=== PATIENT | female | born 1985 | race Hispanic/Latino ===

== ENCOUNTER 2021-10-04 17:11 | Emergency (ER) | payer OTHER ==
--- OUTSIDE RECORDS SUMMARY | 2021-10-04 17:14 | XMS REPORT | Continuity of Care Document ---
:1985 Author Organization [facility] t Address [address] [place] [address] Care Team Providers Name Role Phone Smiley Batista Attending Clinician Unavailable LISANDRO_ALEXA_Lester_G Attending Clinician Unavailable Willam Batista Attending Clinician [phone] Elke Almaguer DO Attending Clinician Elke ALMAGUER Attending Clinician Unavailable Smiley Batista Admitting Clinician Unavailable LISANDRO_ALEXA_Lester_G Admitting Clinician Unavailable Payers Payer Name Policy Type Policy Number Effective Date Expiration Date Smiley moreno [employer] - CHOICE [id number] 2017 00:00:00 (POS II) Problems This patient has no known problems. Allergies, Adverse Reactions, Alerts Allergy Allergy Status Severity Reaction(s) Onset Inactive Treating Comm ents Source Name Type Date Date Clinician No Known DA Active U 2020-10 [facility] [address] [place] [address] NO KNOWN Drug Active [facility] ALLERGIE Class ity of S [facility] Social History Social Habit Start Date Stop Date Quantity Comments Source Exposure to Not sure [facility] SARS-CoV-2 (event) Medica l Branch Sex Assigned At [birth year] [facility] 00:00:00 00:00:00 Medical Branch Smoking Status Start Date Stop Date Source Unknown if ever smoked [facility] Medications This patient has no known medications. Vital Signs Vital Name Observation Time Observation Value Comments Source Systolic blood 2021-04-03 21:24:00 141 mm[Hg] Univer sity of pressure [facility] Diastolic blood 2021-04-03 21:24:00 83 mm[Hg] Unive rsity of pressure [facility] Heart rate 2021-04-03 21:24:00 69 /min [facility] Body temperature 2021-04-03 21:24:00 36.83 Jade [facility] Res[facility] rate 2021-04-03 21:24:00 20 /min [facility] Body weight 2021-04-03 21:24:00 87.544 kg [facility] Oxygen saturation in 2021-04-03 21:24:00 100 /min [facility] Arterial blood by [facility] Pulse oximetry Branch Procedures Procedure Date / Time Performed Performing Clinician Jessica vega [id number] 2021-09-18 00:00:00 [facility] NOTICE OF PRIVACY 2021-04-03 21:16:51 Doctor Unassigned, No [facility] Name Medical Branch CONSENT/REFUSAL FOR 2021-04-03 21:15:55 Doctor Unassigned, No [facility] DIAGNOSIS AND Name Medical Branch TREATMENT Encounters Start End Encounter Admission Attending Care Care Encounter Source Date/Time Date/Time Type Type Clinicians Facility Department ID 2021-09-16 Inpatient VIRAL AmbroseJOHANNA [id number] [facility] 11:30:00 Tuan [id number] [facility] 2021-09-29 2021-09-29 Outpatient GC_[facility]_ PRIV PRIV [id number] [facility] 03:31:00 03:31:00 [facility] [id number] [facility] 2021-09-28 2021-09-28 Outpatient GC_[facility]_ PRIV PRIV [id number] [facility] 05:30:00 05:30:00 Sierra [id number] [facility]i [facility] 2021-09-22 2021-09-22 Outpatient GC_[facility]_ PRIV PRIV [id number] [facility] 02:58:00 02:58:00 Sierra [id number] [facility] 2021-09-18 2021-09-20 Inpatient VIRAL AmbroseJOHANNA OBPP [id number] [facility] 10:54:00 19:29:00 [facility] [id number] 2021-09-20 In[facility] EL [facility] [id number] [facility] 10:54:00 19:29:00 Tuan [facility] 2021-09-17 2021-09-17 Outpatient GC_[facility]_ PRIV PRIV [id number] [facility] 04:11:00 04:11:00 Lester_G [id number] [facility] jeannine 2021-09-16 2021-09-16 Outpatient GC_[facility]_ PRIV PRIV [id number] [facility] 11:22:00 11:22:00 Lester_G [id number] [facility] 2021-09-16 2021-09-16 Outpatient Lester PRIV PRIV [id number] 00:00:00 00:00:00 Tuan [id number] Willam [id number] 2021-09-12 2021-09-12 Outpatient GC_[facility]_ PRIV PRIV [id number] [facility] 01:47:00 01:47:00 Lester_G [id number] [facility] 2021-09-11 2021-09-11 Outpatient GC_[facility]_ PRIV PRIV [id number] [facility] 12:17:00 12:17:00 Lester_G [id number] [facility] 2021-09-11 2021-09-11 Outpatient Lester PRIV PRIV [id number] 00:00:00 00:00:00 Tuan [id number] Willam [id number] 2021-08-31 2021-08-31 Outpatient GC_[facility]_ PRIV PRIV [id number] [facility] 12:34:00 12:34:00 Lester_G [id number] Medi jeannine 2021-08-31 2021-08-31 Outpatient GC_[facility]_ PRIV PRIV [id number] [facility] 12:34:00 12:34:00 Lester_G [id number] [facility] jeannine 2021-04-03 2021-04-03 Emergency [facility] [id number] [facility] 16:26:00 16:59:00 Radha Johns [id number] [facility] [id number] [facility] [id number] [place] [id number] Branch 2021-04-03 2021-04-03 Emergency X [facility] ERT [id number] 16:16:00 16:16[facility]00 [facility] 2021-02-13 2021-02-13 Outpatient GC_[facility]_ PRIV PRIV [id number] [facility] 11:34:00 11:34:00 Sierra [id number] [facility] 2021-02-12 2021-02-12 Outpatient GC_[facility]_ PRIV PRIV [id number] [facility] 12:01:00 12:01:00 Sierra [id number] [facility] Results Test Description Test Time Test Comments Results Result Comments Source HGB HCT 2021-09-19 12:03:00 Test Item Value Reference Range Interpretation Comme nts HEMOGLOBIN (test code = HGB) 7.2 g/dL 10.1-13.8 L HEMATOCRIT (test code = HCT) 22.2 % 32.5-41.8 L [facility] [id number] 05:21:00 Test Item Value Reference Range Interpretation Comments CREATININE (test code = CREAT) 0.6 mg/dL 0.5-1.0 N SGOT/AST (test code = AST) 19 units/L 15-37 N SGPT/ALT (test code = ALT) 13 units/L 12-78 N LACTIC DEHYDROGENASE(LDH) (test 225 units/L 81-234 N code = LDH) : *[id number] 05:21:00 Test Item Value Reference Range Interpretation Comments MAGNESIUM (test code = MAG) 4.8 mg/dL 1.8-2.4 H : *CBC W/AUTO [id number] 05:06:00 Test Item Value Reference Range Interpretation Comments WHITE BLOOD CELL (test code = WBC) 7.2 K/mm3 6.5-12.3 N RED BLOOD CELL (test code = RBC) 2.39 M/mm3 3.51-4.69 L HEMOGLOBIN (test code = HGB) 7.1 g/dL 10.1-13.8 L HEMATOCRIT (test code = HCT) 21.8 % 32.5-41.8 L MEAN CELL VOLUME (test code = MCV) 91.2 fL 84.6-96.6 N MEAN CELL HGB (test code = MCH) 29.7 pg 27.3-33.9 N MEAN CELL HGB CONCETRATION (test 32.6 gm/dL 32.0-34.2 N code = MCHC) RED CELL DISTRIBUTION WIDTH (test 12.5 % 12.2-16.3 N code = RDW) PLATELET COUNT (test code = PLT) 114 K/mm3 134-363 L MEAN PLATELET VOLUME (test code = 10.0 fL 9.2-12.7 N MPV) NEUTROPHIL % (test code = NT%) 72.4 % 57.9-77.3 N LYMPHOCYTE % (test code = LY%) 19.7 % 14.5-29.7 N MONOCYTE % (test code = MO%) 6.4 % 3.6-10.2 N EOSINOPHIL % (test code = EO%) 0.8 % 0.0-3.0 N BASOPHIL % (test code = BA%) 0.3 % 0.1-0.9 N NEUTROPHIL # (test code = NT#) 5.2 K/mm3 LYMPHOCYTE # (test code = LY#) 1.4 K/mm3 MONOCYTE # (test code = MO#) 0.5 K/mm3 EOSINOPHIL # (test code = EO#) 0.06 K/mm3 BASOPHIL # (test code = BA#) 0.0 K/mm3 RBC MORPHOLOGY REQUIRED (test code NORMAL NORMAL = RBCM) PLATELET MORPHOLOGY REQUIRED (test NORMAL NORMAL code = PLTMR) CBC W/AUTO [id number] 01:28:00 Test Item Value Reference Range Interpretation Comments WHITE BLOOD CELL (test code = WBC) 7.5 K/mm3 6.5-12.3 N RED BLOOD CELL (test code = RBC) 2.42 M/mm3 3.51-4.69 L HEMOGLOBIN (test code = HGB) 7.2 g/dL 10.1-13.8 L HEMATOCRIT (test code = HCT) 22.3 % 32.5-41.8 L MEAN CELL VOLUME (test code = MCV) 92.1 fL 84.6-96.6 N MEAN CELL HGB (test code = MCH) 29.8 pg 27.3-33.9 N MEAN CELL HGB CONCETRATION (test 32.3 gm/dL 32.0-34.2 N code = MCHC) RED CELL DISTRIBUTION WIDTH (test 12.7 % 12.2-16.3 N code = RDW) PLATELET COUNT (test code = PLT) 109 K/mm3 134-363 L MEAN PLATELET VOLUME (test code = 10.6 fL 9.2-12.7 N MPV) NEUTROPHIL % (test code = NT%) 68.6 % 57.9-77.3 N LYMPHOCYTE % (test code = LY%) 22.9 % 14.5-29.7 N MONOCYTE % (test code = MO%) 7.2 % 3.6-10.2 N EOSINOPHIL % (test code = EO%) 0.8 % 0.0-3.0 N BASOPHIL % (test code = BA%) 0.1 % 0.1-0.9 N NEUTROPHIL # (test code = NT#) 5.2 K/mm3 LYMPHOCYTE # (test code = LY#) 1.7 K/mm3 MONOCYTE # (test code = MO#) 0.5 K/mm3 EOSINOPHIL # (test code = EO#) 0.06 K/mm3 BASOPHIL # (test code = BA#) 0.0 K/mm3 RBC MORPHOLOGY REQUIRED (test code NORMAL NORMAL = RBCM) PLATELET MORPHOLOGY REQUIRED (test NORMAL NORMAL code = PLTMR) PROTHROMBIN [id number] 21:56:00 Test Item Value Reference Range Interpretation Comments PROTHROMBIN TIME PATIENT (test code 10.6 secs 10.1-12.3 N = PTP) THROMBOPLASTIN TIME [id number] 21:56:00 Test Item Value Reference Range Interpretation Comments THROMBOPLASTIN TIME PARTIAL (test 22.7 secs 22-38 N code = PTT) [id number] 21:56:00 Test Item Value Reference Range Interpretation Comments FIBRINOGEN (test code = FIB) 297 mg/dL 312-503 L HGB [id number] 21:10:00 Test Item Value Reference Range Interpretation Comments HEMOGLOBIN (test code = HGB) 8.2 g/dL 10.1-13.8 L HEMATOCRIT (test code = HCT) 24.7 % 32.5-41.8 L PIH [id number] 19:42:00 Test Item Value Reference Range Interpretation Comments CREATININE (test code = CREAT) 0.5 mg/dL 0.5-1.0 N SGOT/AST (test code = AST) 19 units/L 15-37 N SGPT/ALT (test code = ALT) 20 units/L 12-78 N LACTIC DEHYDROGENASE(LDH) (test 189 units/L 81-234 N code = LDH) : *[id number] 19:42:00 Test Item Value Reference Range Interpretation Comments CREATININE (test code = CREAT) 0.5 mg/dL 0.5-1.0 N CBC W/AUTO [id number] 18:11:00 Test Item Value Reference Range Interpretation Comments WHITE BLOOD CELL (test 10.8 K/mm3 6.5-12.3 Resul ts verified by code = WBC) repeat analysis RED BLOOD CELL (test 2.92 M/mm3 3.51-4.69 L code = RBC) HEMOGLOBIN (test code = 8.8 g/dL 10.1-13.8 L HGB) HEMATOCRIT (test code = 27.1 % 32.5-41.8 L HCT) MEAN CELL VOLUME (test 92.8 fL 84.6-96.6 N code = MCV) MEAN CELL HGB (test code 30.1 pg 27.3-33.9 N = MCH) MEAN CELL HGB 32.5 gm/dL 32.0-34.2 N CONCETRATION (test code = MCHC) RED CELL DISTRIBUTION 12.6 % 12.2-16.3 N WIDTH (test code = RDW) PLATELET COUNT (test 126 K/mm3 134-363 L code = PLT) MEAN PLATELET VOLUME 10.6 fL 9.2-12.7 N (test code = MPV) NEUTROPHIL % (test code 81.3 % 57.9-77.3 H = NT%) LYMPHOCYTE % (test code 13.1 % 14.5-29.7 L = LY%) MONOCYTE % (test code = 4.7 % 3.6-10.2 N MO%) EOSINOPHIL % (test code 0.3 % 0.0-3.0 N = EO%) BASOPHIL % (test code = 0.2 % 0.1-0.9 N BA%) NEUTROPHIL # (test code 8.8 K/mm3 = NT#) LYMPHOCYTE # (test code 1.4 K/mm3 = LY#) MONOCYTE # (test code = 0.5 K/mm3 MO#) EOSINOPHIL # (test code 0.03 K/mm3 = EO#) BASOPHIL # (test code = 0.0 K/mm3 BA#) RBC MORPHOLOGY REQUIRED NORMAL NORMAL (test code = RBCM) PLATELET MORPHOLOGY NORMAL NORMAL REQUIRED (test code = PLTMR) COVID 19 Asymptomatic IH [id number] 15:17:00 Test Item Value Reference Range Interpretation Comments COVID 19 NEGATIVE NEGATIVE This test has b een Asymptomatic IH AG authorize d only for the (test code = detection ofpro teins from COVNONPUIAG) SARS-CoV-2, not for any other viruses orpathogens. N egative results should be treated as presumptive andconfirmed wi th a molecular assay , if necessary for patientmanageme nt. Negative result s do not rule out COVID- 19 andshould not b e used as the sole basis for treatment orpat ient management deci sions, including infec tion controldecision s. Negative result s should be considered i n thecontext of a patient's recent exposure s, history and thepresence of clinical signs and symptoms consis tent withCOVID-19. T his test has not been FD A cleared or approved; th e test hasbeen authori christine by FDA under an Emerge ncy Use Authorization(E UA) for use by monsterato kacy certified under the CLIA thatmeet the re quirements to perform mode rate, high or waivedcomple xity tests. This scottie t is authorized for use at thePoint of Car e (POC), i.e., in patien t care settingsoperati ng under a CLIA Certificat e of Waiver, Certifi demarcus ofCompliance, o r Certificate of Accreditation. This test is only authori zejose for the duration of thedeclaration that circumstances e xist justifying theauthorizatio n of emergency use o f in vitro diagnostic test sfor detection and/o r diagnosis of CO VID-19 under Slebqtx49 4(b)(1) of the Act, 21 U.S .C. 360bbb-3(b)(1), unless theauthorizatio n is terminated or r evoked sooner. AG HEPATITIS B [id number] 15:12:00 Test Item Value Reference Range Interpretation Comments AG HEPATITIS B SURFACE (test code NONREACTIVE NONREACTIVE = HBSAG) : *AB [id number] 15:12:00 Test Item Value Reference Range Interpretation Comments AB TREPONEMA (test code = TREPAB) NONREACTIVE NONREACTIVE : *AB HIV 1 15:12:00 Test Item Value Reference Range Interpretation Comments AB HIV 1 2 (test NONREACTIVE NONREACTIVE Done by [facility] code = [id number]) 4th Gen HIV Ag/Ab Combo Screen : *AB HEPATITIS C [id number] 15:12:00 Test Item Value Reference Range Interpretation Comments AB HEPATITIS C (test code = NONREACTIVE NONREACTIVE HCVAB) SIGNAL TO CUTOFF (test code = <0.02 <0.80 N CUTOFF) : *CBC W/AUTO [id number] 13:04:00 Test Item Value Reference Range Interpretation Comments WHITE BLOOD CELL (test code = WBC) 6.5 K/mm3 6.5-12.3 N RED BLOOD CELL (test code = RBC) 3.70 M/mm3 3.51-4.69 N HEMOGLOBIN (test code = HGB) 11.0 g/dL 10.1-13.8 N HEMATOCRIT (test code = HCT) 33.8 % 32.5-41.8 N MEAN CELL VOLUME (test code = MCV) 91.4 fL 84.6-96.6 N MEAN CELL HGB (test code = MCH) 29.7 pg 27.3-33.9 N MEAN CELL HGB CONCETRATION (test 32.5 gm/dL 32.0-34.2 N code = MCHC) RED CELL DISTRIBUTION WIDTH (test 12.6 % 12.2-16.3 N code = RDW) PLATELET COUNT (test code = PLT) 159 K/mm3 134-363 N MEAN PLATELET VOLUME (test code = 10.6 fL 9.2-12.7 N MPV) NEUTROPHIL % (test code = NT%) 63.8 % 57.9-77.3 N LYMPHOCYTE % (test code = LY%) 25.5 % 14.5-29.7 N MONOCYTE % (test code = MO%) 9.6 % 3.6-10.2 N EOSINOPHIL % (test code = EO%) 0.6 % 0.0-3.0 N BASOPHIL % (test code = BA%) 0.2 % 0.1-0.9 N NEUTROPHIL # (test code = NT#) 4.2 K/mm3 LYMPHOCYTE # (test code = LY#) 1.7 K/mm3 MONOCYTE # (test code = MO#) 0.6 K/mm3 EOSINOPHIL # (test code = EO#) 0.04 K/mm3 BASOPHIL # (test code = BA#) 0.0 K/mm3 RBC MORPHOLOGY REQUIRED (test code NORMAL NORMAL = RBCM) PLATELET MORPHOLOGY REQUIRED (test NORMAL NORMAL code = PLTMR)
--- NOTE | 2021-10-04 19:11 | ER ---
Nurse's Notes [facility] Name: Perri Grayson Age: 36 yrs Sex: Female : 1985 Arrival Date: 10/04/2021 Time: 17:14 Bed Waiting [facility] MD: Diagnosis: ED Course: 10/04 17:14 Patient arrived in ED. ds1 Administered Medications: No medications were administered Outcome: 19:10 Patient left the ED. lt3 Signatures: Leticia Hill ds1 Florencia Ruiz lt3
== END 2021-10-04 19:10 | disposition left against medical advice (07) ==
LOC: ER 17:11
DX: Z02.9 Encounter for administrative examinations, unspecified (principal)

== ENCOUNTER 2023-07-27 20:04 | Emergency (ER) | payer OTHER ==
--- OUTSIDE RECORDS SUMMARY | 2023-07-27 20:10 | XMS REPORT | Continuity of Care Document ---
:1985 Author Organization [facility] t Address [address] [place] [id number] Care Team Providers Name Role Phone Tim Grier Attending Clinician Unavailable RUI_Lester_Mallory Attending Clinician Unavailable Tuan Batista Attending Clinician [phone] Tuan Batista Attending Clinician Unavailable Radha Almaguer DO Attending Clinician RADHA ALMAGUER Attending Clinician Unavailable Monique Admitting Clinician Unavailable Tuan Batista Admitting Clinician Unavailable Payers Payer Name Policy Type Policy Number Effective Date Expiration Date Smiley moreno [employer]ET[employer] - KEENAN [id number] 2017 00:00:00 (POS II) Problems Condition Condition Condition Status Onset Resolution Last Treating Co mments Source Name Details Category Date Date Treatment Clinician Date Problem Active [facility] 00:00: 00 Allergies, Adverse Reactions, Alerts Allergy Allergy Status Severity Reaction(s) Onset Inactive Treating Comm ents Source Name Type Date Date Clinician No Known DA Active U 2020-10 [facility] [address] [place] [address] NO KNOWN Drug Active Univers ALLERGIE Class ity [facility] Social History Social Habit Start Date Stop Date Quantity Comments Source Exposure to Not sure [facility] SARS-CoV-2 (event) Medica l Branch Sex Assigned At [address] [facility] 00:00:00 00:00:00 Medical Branch Smoking Status Start Date Stop Date Source Never Smoker [facility] Unknown if ever smoked [facility] Medications Ordered Filled Start Stop Current Ordering Indication Dosage Frequency Signature Comments Components Source Medication Medication Date Date Medication? Clinician (SIG) Name Name Arabella 0.1 Arabella 0.1 No Arabella 0.1 [facility] mg/24 hr mg/24 hr mg/24 hr Med ical transdermal transdermal transderma patch APPLY patch APPLY l patch 4 PATCHES 4 PATCHES APPLY 4 EVERY OTHER EVERY OTHER PATCHES DAY DAY EVERY OTHER DAY doxycycline doxycycline No doxycyclin [facility] hyclate 100 hyclate 100 e hyclate Medical mg capsule mg capsule 100 mg TAKE 1 TAKE 1 capsule CAPSULE BY CAPSULE BY TAKE 1 MOUTH TWICE MOUTH TWICE CAPSULE BY DAILY DAILY MOUTH TWICE DAILY Endometrin Endometrin No Endometrin [facility] 100 mg 100 mg 100 mg Medical vaginal vaginal vaginal insert insert insert INSERT 1 INSERT 1 INSERT 1 VAGINALLY VAGINALLY VAGINALLY THREE TIMES THREE TIMES THREE DAILY DAILY TIMES DAILY estradiol 2 estradiol 2 No estradiol [facility] mg tablet mg tablet 2 mg Medic al tablet Gonal-F RFF Gonal-F RFF No Gonal-F [facility] Redi-Ject Redi-Ject RFF Medic al 450 450 Redi-Ject unit/0.75 unit/0.75 450 mL mL unit/0.75 subcutaneou subcutaneou mL s pen s pen subcutaneo injector injector us pen injector leuprolide leuprolide No leuprolide [facility] 1 mg/0.2 mL 1 mg/0.2 mL 1 mg/0.2 Medical subcutaneou subcutaneou mL s kit s kit subcutaneo INJECT 10 INJECT 10 us kit UNITS UNITS INJECT 10 SUBCUTANEOU SUBCUTANEOU UNITS SLY (UNDER SLY (UNDER SUBCUTANEO THE SKIN) THE SKIN) USLY EVERY DAY EVERY DAY (UNDER THE SKIN) EVERY DAY med sharp med sharp No med sharp [facility] container container container Medical USE USE USE DIRECTED DIRECTED DIRECTED med swabs med swabs No med swabs [facility] USE USE USE Medical DIRECTED DIRECTED DIRECTED Menopur 75 Menopur 75 No Menopur 75 [facility] unit unit unit Medical subcutaneou subcutaneou subcutaneo s solution s solution us INJECT 3 INJECT 3 solution VIALS EVERY VIALS EVERY INJECT 3 DAY DAY VIALS EVERY DAY methylpredn methylpredn No methylpred [facility] isolone 16 isolone 16 nisolone Medical mg tablet mg tablet 16 mg TAKE 1 TAKE 1 tablet TABLET BY TABLET BY TAKE 1 MOUTH EVERY MOUTH EVERY TABLET BY DAY DAY MOUTH EVERY DAY nitrofurant nitrofurant No nitrofuran [facility] oin oin toin Medical monohydrate monohydrate monohydrat /macrocryst /macrocryst e/macrocry als 100 mg als 100 mg stals 100 capsule capsule mg capsule Take 1 Take 1 Take 1 capsule capsule capsule every 12 every 12 every 12 hours by hours by hours by oral route. oral route. oral route. progesteron progesteron No progestero [facility] e 50 mg/mL e 50 mg/mL ne 50 Me dical intramuscul intramuscul mg/mL ar oil ar oil intramuscu INJECT 1 ML INJECT 1 ML lar oil INTRAMUSCUL INTRAMUSCUL INJECT 1 SOFIA EVERY SOFIA EVERY ML OTHER DAY OTHER DAY INTRAMUSCU LARLY EVERY OTHER DAY promethazin promethazin No promethazi [facility] e 25 mg e 25 mg ne 25 mg Medic al tablet Take tablet Take tablet 1 tablet 1 tablet Take 1 every 6 every 6 tablet hours by hours by every 6 oral route oral route hours by as needed. as needed. oral route as needed. syringe syringe No syringe [facility] (disposable (disposable ([facility] ) 3 mL USE ) 3 mL USE e) 3 mL DIRECTED DIRECTED USE TO MIX TO MIX DIRECTED AND/OR AND/OR TO MIX WITHDRAW WITHDRAW AND/OR WITHDRAW UltiCare UltiCare No UltiCare Susan via 0.5 mL 30 0.5 mL 30 0.5 mL 30 Medical gauge x gauge x gauge x 1/2" 1/2" 1/2" syringe USE syringe USE syringe DIRECTED DIRECTED USE WITH WITH DIRECTED LEUPROLIDE LEUPROLIDE WITH LEUPROLIDE BD Luer-Michelle BD Luer-Michelle No BD P rivia Syringe 3 Syringe 3 Luer-Michelle M edical mL 25 gauge mL 25 gauge Syringe 3 x 1" USE TO x 1" USE TO mL 25 MIX AND MIX AND gauge x 1" DRAW UP DRAW UP USE TO MIX DIRECTED DIRECTED AND DRAW UP DIRECTED BD Regular BD Regular No BD Regular [facility] [place] 18 Woodward 18 Woodward 18 gauge x 1 gauge x 1 gauge x 1 1/2" USE /2" USE /2" USE DIRECTED TO DIRECTED TO MIX AND/OR MIX AND/OR DIRECTED WITHDRAW WITHDRAW TO MIX AND/OR WITHDRAW BD Regular BD Regular No BD Regular [facility] [place] 22 Woodward 22 [place] 22 gauge x 1" gauge x 1" gauge x 1" USE USE USE DIRECTED TO DIRECTED TO DIRECTED INJECT INJECT TO INJECT INTRAMUSCUL INTRAMUSCUL INTRAMUSCU SOFIA SOFIA LARLY BD BD No BD [facility] Use [place] Use [place] Use 30 gauge x 30 gauge x [place]ward 30 10/04" USE TO 10/04" USE TO gauge x INJECT INJECT 2" USE UNDER THE UNDER THE TO INJECT SKIN SKIN UNDER THE SKIN Cetrotide Cetrotide No Cetrotide [facility] 0.25 mg 0.25 mg 0.25 mg Medica l subcutaneou subcutaneou subcutaneo s kit s kit us kit dexamethaso dexamethaso No dexamethas [facility] ne 0.5 mg ne 0.5 mg one 0.5 mg Medical tablet tablet tablet Arabella 0.1 Arabella 0.1 No Arabella 0.1 [facility] mg/24 hr mg/24 hr mg/24 hr Med ical transdermal transdermal transderma patch APPLY patch APPLY l patch 4 PATCHES 4 PATCHES APPLY 4 EVERY OTHER EVERY OTHER PATCHES DAY DAY EVERY OTHER DAY doxycycline doxycycline No doxycyclin [facility] hyclate 100 hyclate 100 e hyclate Medical mg capsule mg capsule 100 mg TAKE 1 TAKE 1 capsule CAPSULE BY CAPSULE BY TAKE 1 MOUTH TWICE MOUTH TWICE CAPSULE BY DAILY DAILY MOUTH TWICE DAILY Endometrin Endometrin No Endometrin [facility] 100 mg 100 mg 100 mg Medical vaginal vaginal vaginal insert insert insert INSERT 1 INSERT 1 INSERT 1 VAGINALLY VAGINALLY VAGINALLY THREE TIMES THREE TIMES THREE DAILY DAILY TIMES DAILY estradiol 2 estradiol 2 No estradiol [facility] mg tablet mg tablet 2 mg Medic al tablet Gonal-F RFF Gonal-F RFF No Gonal-F [facility] Redi-Ject Redi-Ject RFF Medic al 450 450 Redi-Ject unit/0.75 unit/0.75 450 mL mL unit/0.75 subcutaneou subcutaneou mL s pen s pen subcutaneo injector injector us pen injector ibuprofen ibuprofen No ibuprofen [facility] 600 mg 600 mg 600 mg Medical tablet tablet tablet leuprolide leuprolide No leuprolide [facility] 1 mg/0.2 mL 1 mg/0.2 mL 1 mg/0.2 Medical subcutaneou subcutaneou mL s kit s kit subcutaneo INJECT 10 INJECT 10 us kit UNITS UNITS INJECT 10 SUBCUTANEOU SUBCUTANEOU UNITS SLY (UNDER SLY (UNDER SUBCUTANEO THE SKIN) THE SKIN) USLY EVERY DAY EVERY DAY (UNDER THE SKIN) EVERY DAY med sharp med sharp No med sharp [facility] container container container Medical USE USE USE DIRECTED DIRECTED DIRECTED med swabs med swabs No med swabs [facility] USE USE USE Medical DIRECTED DIRECTED DIRECTED Menopur 75 Menopur 75 No Menopur 75 [facility] unit unit unit Medical subcutaneou subcutaneou subcutaneo s solution s solution us INJECT 3 INJECT 3 solution VIALS EVERY VIALS EVERY INJECT 3 DAY DAY VIALS EVERY DAY methylpredn methylpredn No methylpred [facility] isolone 16 isolone 16 nisolone Medical mg tablet mg tablet 16 mg TAKE 1 TAKE 1 tablet TABLET BY TABLET BY TAKE 1 MOUTH EVERY MOUTH EVERY TABLET BY DAY DAY MOUTH EVERY DAY metoclopram metoclopram No metoclopra [facility] keren 10 mg keren 10 mg mide 10 mg Medical tablet Take tablet Take tablet 1 tablet 3 1 tablet 3 Take 1 times a day times a day tablet 3 by oral by oral times a route. route. day by oral route. nitrofurant nitrofurant No nitrofuran [facility] oin oin toin Medical monohydrate monohydrate monohydrat /macrocryst /macrocryst e/macrocry als 100 mg als 100 mg stals 100 capsule capsule mg capsule Take 1 Take 1 Take 1 capsule capsule capsule every 12 every 12 every 12 hours by hours by hours by oral route. oral route. oral route. oxycodone-a oxycodone-a No oxycodone- [facility] cetaminophe cetaminophe acetaminop Medical n 5 mg-325 n 5 mg-325 hen 5 mg tablet mg tablet mg-325 mg tablet progesteron progesteron No progestero [facility] e 50 mg/mL e 50 mg/mL ne 50 Me dical intramuscul intramuscul mg/mL ar oil ar oil intramuscu INJECT 1 ML INJECT 1 ML lar oil INTRAMUSCUL INTRAMUSCUL INJECT 1 SOFIA EVERY SOFIA EVERY ML OTHER DAY OTHER DAY INTRAMUSCU LARLY EVERY OTHER DAY promethazin promethazin No promethazi [facility] e 25 mg e 25 mg ne 25 mg Medic al tablet Take tablet Take tablet 1 tablet 1 tablet Take 1 every 6 every 6 tablet hours by hours by every 6 oral route oral route hours by as needed. as needed. oral route as needed. syringe syringe No syringe [facility] USE ) 3 mL USE e) 3 mL DIRECTED DIRECTED USE TO MIX TO MIX DIRECTED AND/OR AND/OR TO MIX WITHDRAW WITHDRAW AND/OR WITHDRAW UltiCare UltiCare No UltiCare Susan via 0.5 mL 30 0.5 mL 30 0.5 mL 30 Medical gauge x gauge x gauge x 1/2" 1/2" 1/2" syringe USE syringe USE syringe DIRECTED DIRECTED USE WITH WITH DIRECTED LEUPROLIDE LEUPROLIDE WITH LEUPROLIDE BD Luer-Michelle BD Luer-Michelle No BD P [facility] Syringe 3 Syringe 3 Luer-Michelle M edical mL 25 gauge mL 25 gauge Syringe 3 x 1" USE TO x 1" USE TO mL 25 MIX AND MIX AND gauge x 1" DRAW UP DRAW UP USE TO MIX DIRECTED DIRECTED AND DRAW UP DIRECTED BD Regular BD Regular No BD Regular [facility] [place] 18 Woodward 18 Woodward 18 gauge x 1 gauge x 1 gauge x 1 1/2" USE 1/2" USE 1/2" USE DIRECTED TO DIRECTED TO MIX AND/OR MIX AND/OR DIRECTED WITHDRAW WITHDRAW TO MIX AND/OR WITHDRAW BD Regular BD Regular No BD Regular [facility]vel [facility] [place] 22 Woodward 22 [place] 22 gauge x 1" gauge x 1" gauge x 1" USE USE USE DIRECTED TO DIRECTED TO DIRECTED INJECT INJECT TO INJECT INTRAMUSCUL INTRAMUSCUL INTRAMUSCU SOFIA SOFIA LARLY BD BD No BD [facility] Use [place] Use [place] Use 30 gauge x 30 gauge x [place] 30 1/2" USE TO 1/2" USE TO gauge x INJECT INJECT 1/2" USE UNDER THE UNDER THE TO INJECT SKIN SKIN UNDER THE SKIN Cetrotide Cetrotide No Cetrotide [facility] 0.25 mg 0.25 mg 0.25 mg Medica l subcutaneou subcutaneou subcutaneo s kit s kit us kit dexamethaso dexamethaso No dexamethas [facility] ne 0.5 mg ne 0.5 mg one 0.5 mg Medical tablet tablet tablet Arabella 0.1 Arabella 0.1 No Arabella 0.1 [facility] mg/24 hr mg/24 hr mg/24 hr Med ical transdermal transdermal transderma patch APPLY patch APPLY l patch 4 PATCHES 4 PATCHES APPLY 4 EVERY OTHER EVERY OTHER PATCHES DAY DAY EVERY OTHER DAY doxycycline doxycycline No doxycyclin [facility] hyclate 100 hyclate 100 e hyclate Medical mg capsule mg capsule 100 mg TAKE 1 TAKE 1 capsule CAPSULE BY CAPSULE BY TAKE 1 MOUTH TWICE MOUTH TWICE CAPSULE BY DAILY DAILY MOUTH TWICE DAILY Endometrin Endometrin No Endometrin [facility] 100 mg 100 mg 100 mg Medical vaginal vaginal vaginal insert insert insert INSERT 1 INSERT 1 INSERT 1 VAGINALLY VAGINALLY VAGINALLY THREE TIMES THREE TIMES THREE DAILY DAILY TIMES DAILY estradiol 2 estradiol 2 No estradiol [facility] mg tablet mg tablet 2 mg Medic al tablet Gonal-F RFF Gonal-F RFF No Gonal-F [facility] Redi-Ject Redi-Ject RFF Medic al 450 450 Redi-Ject unit/0.75 unit/0.75 450 mL mL unit/0.75 subcutaneou subcutaneou mL s pen s pen subcutaneo injector injector us pen injector ibuprofen ibuprofen No ibuprofen [facility] 600 mg 600 mg 600 mg Medical tablet tablet tablet leuprolide leuprolide No leuprolide [facility] 1 mg/0.2 mL 1 mg/0.2 mL 1 mg/0.2 Medical subcutaneou subcutaneou mL s kit s kit subcutaneo INJECT 10 INJECT 10 us kit UNITS UNITS INJECT 10 SUBCUTANEOU SUBCUTANEOU UNITS SLY (UNDER SLY (UNDER SUBCUTANEO THE SKIN) THE SKIN) USLY EVERY DAY EVERY DAY (UNDER THE SKIN) EVERY DAY med sharp med sharp No med sharp [facility] container container container Medical USE USE USE DIRECTED DIRECTED DIRECTED med swabs med swabs No med swabs [facility] USE USE USE Medical DIRECTED DIRECTED DIRECTED Menopur 75 Menopur 75 No Menopur 75 [facility] unit unit unit Medical subcutaneou subcutaneou subcutaneo s solution s solution us INJECT 3 INJECT 3 solution VIALS EVERY VIALS EVERY INJECT 3 DAY DAY VIALS EVERY DAY methylpredn methylpredn No methylpred [facility] isolone 16 isolone 16 nisolone Medical mg tablet mg tablet 16 mg TAKE 1 TAKE 1 tablet TABLET BY TABLET BY TAKE 1 MOUTH EVERY MOUTH EVERY TABLET BY DAY DAY MOUTH EVERY DAY metoclopram metoclopram No metoclopra [facility] keren 10 mg keren 10 mg mide 10 mg Medical tablet Take tablet Take tablet 1 tablet 3 1 tablet 3 Take 1 times a day times a day tablet 3 by oral by oral times a route. route. day by oral route. nitrofurant nitrofurant No nitrofuran [facility] oin oin toin Medical monohydrate monohydrate monohydrat /macrocryst /macrocryst e/macrocry als 100 mg als 100 mg stals 100 capsule capsule mg capsule Take 1 Take 1 Take 1 capsule capsule capsule every 12 every 12 every 12 hours by hours by hours by oral route. oral route. oral route. oxycodone-a oxycodone-a No oxycodone- [facility] cetaminophe cetaminophe acetaminop Medical n 5 mg-325 n 5 mg-325 hen 5 mg tablet mg tablet mg-325 mg tablet progesteron progesteron No progestero [facility] e 50 mg/mL e 50 mg/mL ne 50 Me dical intramuscul intramuscul mg/mL ar oil ar oil intramuscu INJECT 1 ML INJECT 1 ML lar oil INTRAMUSCUL INTRAMUSCUL INJECT 1 SOFIA EVERY SOFIA EVERY ML OTHER DAY OTHER DAY INTRAMUSCU LARLY EVERY OTHER DAY promethazin promethazin No promethazi [facility] e 25 mg e 25 mg ne 25 mg Medic al tablet Take tablet Take tablet 1 tablet 1 tablet Take 1 every 6 every 6 tablet hours by hours by every 6 oral route oral route hours by as needed. as needed. oral route as needed. syringe syringe No syringe [facility] (disposable (disposable ([facility] ) 3 mL USE ) 3 mL USE e) 3 mL DIRECTED DIRECTED USE TO MIX TO MIX DIRECTED AND/OR AND/OR TO MIX WITHDRAW WITHDRAW AND/OR WITHDRAW UltiCare UltiCare No UltiCare Susan via 0.5 mL 30 0.5 mL 30 0.5 mL 30 Medical gauge x gauge x gauge x 1/2" 1/2" 1/2" syringe USE syringe USE syringe DIRECTED DIRECTED USE WITH WITH DIRECTED LEUPROLIDE LEUPROLIDE WITH LEUPROLIDE BD Luer-Michelle BD Luer-Michelle No BD P [facility] Syringe 3 Syringe 3 Luer-Michelle M edical mL 25 gauge mL 25 gauge Syringe 3 x 1" USE TO x 1" USE TO mL 25 MIX AND MIX AND gauge x 1" DRAW UP DRAW UP USE TO MIX DIRECTED DIRECTED AND DRAW UP DIRECTED BD Regular BD Regular No BD Regular [facility] Bevel [facility] [place] 18 Woodward 18 [place] 18 gauge x 1 gauge x 1 gauge x 1 1/2" USE 1/2" USE 1/2" USE DIRECTED TO DIRECTED TO MIX AND/OR MIX AND/OR DIRECTED WITHDRAW WITHDRAW TO MIX AND/OR WITHDRAW BD Regular BD Regular No BD Regular [facility] Bevel Bevel [facility]vel [facility] [place] 22 [place] 22 [place] 22 gauge x 1" gauge x 1" gauge x 1" USE USE USE DIRECTED TO DIRECTED TO DIRECTED INJECT INJECT TO INJECT INTRAMUSCUL INTRAMUSCUL INTRAMUSCU SOFIA SOFIA LARLY BD BD No BD [facility] Use [place] Use [place] Use 30 gauge x 30 gauge x [place] 30 1/2" USE TO 1/2" USE TO gauge x INJECT INJECT 1/2" USE UNDER THE UNDER THE TO INJECT SKIN SKIN UNDER THE SKIN Cetrotide Cetrotide No Cetrotide [facility] 0.25 mg 0.25 mg 0.25 mg Medica l subcutaneou subcutaneou subcutaneo s kit s kit us kit dexamethaso dexamethaso No dexamethas [facility] ne 0.5 mg ne 0.5 mg one 0.5 mg Medical tablet tablet tablet Arabella 0.1 Arabella 0.1 No Arabella 0.1 [facility] mg/24 hr mg/24 hr mg/24 hr Med ical transdermal transdermal transderma patch APPLY patch APPLY l patch 4 PATCHES 4 PATCHES APPLY 4 EVERY OTHER EVERY OTHER PATCHES DAY DAY EVERY OTHER DAY doxycycline doxycycline No doxycyclin [facility] hyclate 100 hyclate 100 e hyclate Medical mg capsule mg capsule 100 mg TAKE 1 TAKE 1 capsule CAPSULE BY CAPSULE BY TAKE 1 MOUTH TWICE MOUTH TWICE CAPSULE BY DAILY DAILY MOUTH TWICE DAILY Endometrin Endometrin No Endometrin [facility] 100 mg 100 mg 100 mg Medical vaginal vaginal vaginal insert insert insert INSERT 1 INSERT 1 INSERT 1 VAGINALLY VAGINALLY VAGINALLY THREE TIMES THREE TIMES THREE DAILY DAILY TIMES DAILY estradiol 2 estradiol 2 No estradiol [facility] mg tablet mg tablet 2 mg Medic al tablet Gonal-F RFF Gonal-F RFF No Gonal-F [facility] Redi-Ject Redi-Ject RFF Medic al 450 450 Redi-Ject unit/0.75 unit/0.75 450 mL mL unit/0.75 subcutaneou subcutaneou mL s pen s pen subcutaneo injector injector us pen injector leuprolide leuprolide No leuprolide [facility] 1 mg/0.2 mL 1 mg/0.2 mL 1 mg/0.2 Medical subcutaneou subcutaneou mL s kit s kit subcutaneo INJECT 10 INJECT 10 us kit UNITS UNITS INJECT 10 SUBCUTANEOU SUBCUTANEOU UNITS SLY (UNDER SLY (UNDER SUBCUTANEO THE SKIN) THE SKIN) USLY EVERY DAY EVERY DAY (UNDER THE SKIN) EVERY DAY med sharp med sharp No med sharp [facility] container container container Medical USE USE USE DIRECTED DIRECTED DIRECTED med swabs med swabs No med swabs [facility] USE USE USE Medical DIRECTED DIRECTED DIRECTED Menopur 75 Menopur 75 No Menopur 75 [facility] unit unit unit Medical subcutaneou subcutaneou subcutaneo s solution s solution us INJECT 3 INJECT 3 solution VIALS EVERY VIALS EVERY INJECT 3 DAY DAY VIALS EVERY DAY methylpredn methylpredn No methylpred [facility] isolone 16 isolone 16 nisolone Medical mg tablet mg tablet 16 mg TAKE 1 TAKE 1 tablet TABLET BY TABLET BY TAKE 1 MOUTH EVERY MOUTH EVERY TABLET BY DAY DAY MOUTH EVERY DAY nitrofurant nitrofurant No nitrofuran [facility] oin oin toin Medical monohydrate monohydrate monohydrat /macrocryst /macrocryst e/macrocry als 100 mg als 100 mg stals 100 capsule capsule mg capsule Take 1 Take 1 Take 1 capsule capsule capsule every 12 every 12 every 12 hours by hours by hours by oral route. oral route. oral route. progesteron progesteron No progestero [facility] e 50 mg/mL e 50 mg/mL ne 50 Me dical intramuscul intramuscul mg/mL ar oil ar oil intramuscu INJECT 1 ML INJECT 1 ML lar oil INTRAMUSCUL INTRAMUSCUL INJECT 1 SOFIA EVERY SOFIA EVERY ML OTHER DAY OTHER DAY INTRAMUSCU LARLY EVERY OTHER DAY promethazin promethazin No promethazi [facility] e 25 mg e 25 mg ne 25 mg Medic al tablet Take tablet Take tablet 1 tablet 1 tablet Take 1 every 6 every 6 tablet hours by hours by every 6 oral route oral route hours by as needed. as needed. oral route as needed. syringe syringe No syringe [facility] (disposable (disposable ([facility] ) 3 mL USE ) 3 mL USE e) 3 mL DIRECTED DIRECTED USE TO MIX TO MIX DIRECTED AND/OR AND/OR TO MIX WITHDRAW WITHDRAW AND/OR WITHDRAW UltiCare UltiCare No UltiCare Susan via 0.5 mL 30 0.5 mL 30 0.5 mL 30 Medical gauge x gauge x gauge x 1/2" 1/2" 1/2" syringe USE syringe USE syringe DIRECTED DIRECTED USE WITH WITH DIRECTED LEUPROLIDE LEUPROLIDE WITH LEUPROLIDE BD Luer-Michelle BD Luer-Michelle No BD P [facility]ia Syringe 3 Syringe 3 Luer-Michelle M edical mL 25 gauge mL 25 gauge Syringe 3 x 1" USE TO x 1" USE TO mL 25 MIX AND MIX AND gauge x 1" DRAW UP DRAW UP USE TO MIX DIRECTED DIRECTED AND DRAW UP DIRECTED BD Regular BD Regular No BD Regular [facility] Bevel [facility]vel [facility]vel [facility] [place] 18 Woodward 18 [place] 18 gauge x 1 gauge x 1 gauge x 1 1/2" USE 1/2" USE 1/2" USE DIRECTED TO DIRECTED TO MIX AND/OR MIX AND/OR DIRECTED WITHDRAW WITHDRAW TO MIX AND/OR WITHDRAW BD Regular BD Regular No BD Regular [facility] [place] 22 [place] 22 [place] 22 gauge x 1" gauge x 1" gauge x 1" USE USE USE DIRECTED TO DIRECTED TO DIRECTED INJECT INJECT TO INJECT INTRAMUSCUL INTRAMUSCUL INTRAMUSCU SOFIA SOFIA LARLY BD BD No BD [facility] Use [place] Use [place] Use 30 gauge x 30 gauge x [place] 30 1/2" USE TO 1/2" USE TO gauge x INJECT INJECT 1/2" USE UNDER THE UNDER THE TO INJECT SKIN SKIN UNDER THE SKIN Cetrotide Cetrotide No Cetrotide [facility] 0.25 mg 0.25 mg 0.25 mg Medica l subcutaneou subcutaneou subcutaneo s kit s kit us kit dexamethaso dexamethaso No dexamethas [facility] ne 0.5 mg ne 0.5 mg one 0.5 mg Medical tablet tablet tablet Vital Signs Vital Name Observation Time Observation Value Comments Source BP Diastolic 2021-10-06 00:00:00 68 mm[Hg] [facility] Height 2021-10-06 00:00:00 59 [in_i] [facility] BMI (Body Mass 2021-10-06 00:00:00 38.2 kg/m2 [facility] Medical Index) BP Systolic 2021-10-06 00:00:00 108 mm[Hg] [facility] Body Weight 2021-10-06 00:00:00 189 [lb_av] [facility] BP Diastolic 2021-09-28 00:00:00 80 mm[Hg] [facility] Height 2021-09-28 00:00:00 59 [in_i] [facility] BMI (Body Mass 2021-09-28 00:00:00 40 kg/m2 [facility] Medical Index) BP Systolic 2021-09-28 00:00:00 112 mm[Hg] [facility] Body Weight 2021-09-28 00:00:00 198 [lb_av] [facility] BP Diastolic 2021-09-16 00:00:00 68 mm[Hg] [facility] Height 2021-09-16 00:00:00 59 [in_i] [facility] BMI (Body Mass 2021-09-16 00:00:00 42.8 kg/m2 [facility] Medical Index) BP Systolic 2021-09-16 00:00:00 104 mm[Hg] [facility] Body Weight 2021-09-16 00:00:00 212 [lb_av] [facility] BP Diastolic 2021-09-11 00:00:00 80 mm[Hg] [facility] Height 2021-09-11 00:00:00 59 [in_i] [facility] BMI (Body Mass 2021-09-11 00:00:00 42.3 kg/m2 [facility] Medical Index) BP Systolic 2021-09-11 00:00:00 122 mm[Hg] [facility] Body Weight 2021-09-11 00:00:00 209.3 [lb_av] [facility] Systolic blood 2021-04-03 21:24:00 141 mm[Hg] Univer sity of pressure [facility] Diastolic blood 2021-04-03 21:24:00 83 mm[Hg] Unive rsity of pressure [facility] Heart rate 2021-04-03 21:24:00 69 /min [facility] Body temperature 2021-04-03 21:24:00 36.83 Jade [facility] Respiratory rate 2021-04-03 21:24:00 20 /min [facility] Body weight 2021-04-03 21:24:00 87.544 kg [facility] Oxygen saturation in 2021-04-03 21:24:00 100 /min [facility] Arterial blood by [facility] Pulse oximetry Branch Procedures Procedure Date / Time Performing Clinician Source Performed [id number] 2021-09-18 00:00:00 [facility] NON TO STRESS 2021-09-11 00:00:00 [facility] TEST NOTICE OF PRIVACY 2021-04-03 21:16:51 Doctor Unassigned, No Univ [facility] PRACTICES Name Medical Branch CONSENT/REFUSAL FOR 2021-04-03 21:15:55 [facility]igned, No [facility] Laparoscopic Sleeve 2017-10-03 00:00:00 [facility] Gastrectomy Caesarean Section 2013-03-27 00:00:00 [facility] Tapia ical Plan of Care Planned Activity Planned Date Details Comments Source Diagnostic Test 2021-09-16 00:00:00 urinalysis, dipstick [facility] Medical Pending [code = urinalysis, dipstick] Encounters Start End Encounter Admission Attending Care Care Encounter Source Date/Time Date/Time Type Type Clinicians Facility Department ID 2022-05-26 Outpatient Grier, [facility] [id number] Common 09:29:00 Tim [facility] 2021-12-30 Outpatient Grier, STLMLC STLMLC [id number] Common 06:20:01 Tim [facility] 2021-12-23 Outpatient Grier, STLMLC STLMLC [id number] Common 09:39:01 Tim [facility] 2021-12-22 Outpatient Grier, STLMLC STLMLC [id number] Common 09:20:00 Tim [facility] 2021-11-24 Outpatient Grier, STLMLC STLMLC [id number] Common 09:00:02 Tim [facility] 2021-11-10 Outpatient Grier, STLMLC STLMLC [id number] Common 09:24:01 Tim [facility] 2021-10-28 Outpatient Grier, STLMLC STLMLC [id number] Common 12:28:40 Tim [id number] [facility] 2021-10-28 Outpatient Grier, STLMLC STLC [id number] Common 12:27:53 Tim [id number] [facility] 2021-10-28 Outpatient Grier, STLMLC STLC [id number] Common 12:26:37 Tim [id number] [facility] 2023-03-18 2023-03-18 Outpatient GC_SWHAOMC_ PRIV PRIV [id number] [facility] 00:00:00 00:00:00 Shelton_G [id number] [facility] 2023-03-18 2023-03-18 Outpatient GC_SWHAOMC_ PRIV PRIV [id number] [facility] 00:00:00 00:00:00 Shelton_G [id number] [facility] 2023-03-17 2023-03-17 Outpatient GC_SWHAOMC_ PRIV PRIV [id number] [facility] 00:00:00 00:00:00 Shelton_G [id number] [facility] 2023-03-14 2023-03-14 Outpatient GC_SWHAOMC_ PRIV PRIV [id number] [facility] 00:00:00 00:00:00 Shelton_G [id number] [facility] 2021-10-31 2021-10-31 Outpatient GC_SWHAOMC_ PRIV PRIV [id number] [facility] 12:52:00 12:52:00 Shelton_G [id number] [facility] 2021-10-30 2021-10-30 Outpatient GC_SWHAOMC_ PRIV PRIV [id number] [facility] 02:55:00 02:55:00 Lester_Mallory [id number] Medi jeannine 2021-10-29 2021-10-29 Outpatient GC_SWHAOMC_ PRIV PRIV 197 [id number] [facility] 02:22:00 02:22:00 Lester_G [id number] Medi jeannine 2021-10-07 2021-10-07 Outpatient GC_SWHAOMC_ PRIV PRIV 197 [id number] [facility] 05:36:00 05:36:00 Lester_Mallory [id number] Medi jeannine 2021-10-06 2021-10-06 Outpatient GC_SWHAOMC_ PRIV PRIV 197 [id number] [facility] 12:06:00 12:06:00 Sierra [id number] Medi jeannine 2021-10-06 2021-10-06 Tuan [facility] 00:00:00 00:00:00 [facility] - [facility] ri Lester LISANDRO_JOHANNHAOMC_ MD: [address] [facility], [address], [place] [address] , Ph. 2021-10-06 2021-10-06 Outpatient Batista, PRIV PRIV [id number] 00:00:00 00:00:00 Tuan [id number] Willam [id number] 2021-09-29 2021-09-29 Outpatient GC_SWHAOMC_ PRIV PRIV [id number] [facility] 03:31:00 03:31:00 Sierra [id number] Medi jeannine 2021-09-28 2021-09-28 Outpatient GC_SWHAOMC_ PRIV PRIV [id number] [facility] 05:30:00 05:30:00 Sierra [id number] Medi jeannine 2021-09-28 2021-09-28 Outpatient Batista, PRIV PRIV [id number] 00:00:00 00:00:00 Tuan [id number] Willam [id number] 2021-09-28 2021-09-28 Tuan [facility] [id number] [facility] 00:00:00 00:00:00 [facility] - Medic clarisa Batista LISANDRO_ALEXA_ : [address], [address], [place] [address] , Ph. 2021-09-22 2021-09-22 Outpatient GC_SWHAOMC_ PRIV PRIV [id number] [facility] 02:58:00 02:58:00 Sierra [id number] [facility] 2021-09-18 2021-09-20 Inpatient YELENA Batista [facility] OB [id number] [facility] 10:54:00 19:29:00 Tuan 02 [facility] s [facility] 2021-09-17 2021-09-17 Outpatient GC_SWHAOMC_ PRIV PRIV [id number] [facility] 04:11:00 04:11:00 Sierra [id number] Medi jeannine 2021-09-16 2021-09-16 Outpatient GC_SWHAOMC_ PRIV PRIV [id number] [facility] 11:22:00 11:22:00 Sierra [id number] Medi [facility] 2021-09-16 2021-09-16 Outpatient Lester, PRIV PRIV [id number] 00:00:00 00:00:00 Tuan [id number] [place] [id number] 2021-09-16 2021-09-16 Tuan [facility] [id number] [facility] 00:00:00 00:00:00 [facility] - Medic clarisa Batista LISANDRO_ALEXA_ : [address], [address], [place] [address] , Ph. 2021-09-12 2021-09-12 Outpatient GC_SWHAOMC_ PRIV PRIV 197 [id number] [facility] 01:47:00 01:47:00 Sierra [id number] Medi jeannine 2021-09-11 2021-09-11 Outpatient GC_SWHAOMC_ PRIV PRIV [id number] [facility] 12:17:00 12:17:00 Sierra [id number] Medi jeannine 2021-09-11 2021-09-11 Outpatient Batista, PRIV PRIV [id number] 00:00:00 00:00:00 Tuan [id number] [place] [id number] 2021-09-11 2021-09-11 Tuan [facility] [id number] [facility] 00:00:00 00:00:00 [facility] - Medic KARI Haley MD: [address] [facility] [place], [address], [place] [address] , Ph. 2021-09-04 2021-09-04 Tuan [facility] [id number] [facility] 00:00:00 00:00:00 [facility] - Medic KARI Haley MD: [address], [place] [address] , Ph. 2021-08-31 2021-08-31 Outpatient GC_SWHAOMC_ PRIV PRIV [id number] [facility] 12:34:00 12:34:00 Sierra [id number] [facility] 2021-08-21 2021-08-21 Tuan [facility] [id number] [facility] 00:00:00 00:00:00 [facility] - Medic KARI Haley MD: [address], [place] [address] , Ph. 2021-04-03 2021-04-03 [facility] [id number] [facility] 16:26:00 16:59:00 Radha Johns [id number] [facility] [id number] [facility] [id number] [place] [address] [address] 2021-04-03 2021-04-03 Emergency [facility] [id number] [facility] 16:16:00 16:16:[address] [facility] 2021-02-13 2021-02-13 Outpatient GC_SWHAOMC_ PRIV PRIV [id number] [facility] 11:34:00 11:34:00 Sierra [id number] [facility] 2021-02-12 2021-02-12 Outpatient GC_SWHAOMC_ PRIV PRIV [id number] [facility] 12:01:00 12:01:00 Sierra [id number] [facility] Results Test Description Test Time Test Comments Results Result Comments Source HGB HCT 2021-09-19 12:03:00 Test Item Value Reference Range Interpretation Comme nts HEMOGLOBIN (test code = HGB) 7.2 g/dL 10.1-13.8 L HEMATOCRIT (test code = HCT) 22.2 % 32.5-41.8 L PIH [id number] 05:21:00 Test Item Value Reference Range Interpretation Comments CREATININE (test code = CREAT) 0.6 mg/dL 0.5-1.0 N SGOT/AST (test code = AST) 19 units/L 15-37 N SGPT/ALT (test code = ALT) 13 units/L 12-78 N LACTIC DEHYDROGENASE(LDH) (test 225 units/L 81-234 N code = LDH) : *[id number] 05:21:00 Test Item Value Reference Range Interpretation Comments MAGNESIUM (test code = MAG) 4.8 mg/dL 1.8-2.4 H : *CBC W/AUTO [id number] 05:06:00 Test Item Value Reference Range Interpretation [...] NORMAL NORMAL code = PLTMR) CBC W/AUTO [id number] 01:28:00 Test Item Value Reference Range Interpretation [...] (test NORMAL NORMAL code = PLTMR) PROTHROMBIN [id number] 21:56:00 Test Item Value Reference Range Interpretation Comments PROTHROMBIN TIME PATIENT (test code 10.6 secs 10.1-12.3 N = PTP) THROMBOPLASTIN TIME [id number] 21:56:00 Test Item Value Reference Range Interpretation Comments THROMBOPLASTIN TIME PARTIAL (test 22.7 secs 22-38 N code = PTT) [id number] 21:56:00 Test Item Value Reference Range Interpretation Comments FIBRINOGEN (test code = FIB) 297 mg/dL 312-503 L HGB [id number] 21:10:00 Test Item Value Reference Range Interpretation Comments HEMOGLOBIN (test code = HGB) 8.2 g/dL 10.1-13.8 L HEMATOCRIT (test code = HCT) 24.7 % 32.5-41.8 L PIH [id number] 19:42:00 Test Item Value Reference Range Interpretation Comments CREATININE (test code = CREAT) 0.5 mg/dL 0.5-1.0 N SGOT/AST (test code = AST) 19 units/L 15-37 N SGPT/ALT (test code = ALT) 20 units/L 12-78 N LACTIC DEHYDROGENASE(LDH) (test 189 units/L 81-234 N code = LDH) : *[id number] 19:42:00 Test Item Value Reference Range Interpretation Comments CREATININE (test code = CREAT) 0.5 mg/dL 0.5-1.0 N CBC W/AUTO [id number] 18:11:00 Test Item Value Reference Range Interpretation [...] code = PLTMR) COVID 19 Asymptomatic IH [id number] 15:17:00 Test Item Value Reference Range Interpretation Comments COVID 19 NEGATIVE NEGATIVE This test has b een Asymptomatic IH AG authorize d only for the (test code = detection ofpro teins from COVNONPUIAG) SARS-CoV-2, not for any other viruses orpathogens. Ne gative results should be treated as presumptive andconfirmed [...] or approved; th e test hasbeen authori zed by FDA under an Emerge ncy Use Authorization(E UA) for use by laborato kacy certified under the CLIA thatmeet the re quirements to perform mode rate, high or waivedcomple xity tests. This scottie t is authorized for use at thePoint of Car e (POC), i.e., in patien t care settingsoperati ng under a CLIA Certificat e of Waiver, Certifi demarcus ofCompliance, o r Certificate of Accreditation. This test is only authori zed for the duration of thedeclaration that circumstances e xist justifying theauthorizatio n of emergency use o f in vitro diagnostic test sfor detection and/o r diagnosis of CO VID-19 under Zergufn90 4(b)(1) of the Act, 21 U.S .C. 360bbb-3(b)(1), unless theauthorizatio n is terminated or r evoked sooner. AG HEPATITIS B [id number] 15:12:00 Test Item Value Reference Range Interpretation Comments AG HEPATITIS B SURFACE (test code NONREACTIVE NONREACTIVE = HBSAG) : *AB [id number] 15:12:00 Test Item Value Reference Range Interpretation Comments AB TREPONEMA (test code = TREPAB) NONREACTIVE NONREACTIVE : *AB HIV 1 15:12:00 Test Item Value Reference Range Interpretation Comments AB HIV 1 2 (test NONREACTIVE NONREACTIVE Done by [facility] code = [id number]) 4th Gen HIV Ag/Ab Combo Screen : *AB HEPATITIS C [id number] 15:12:00 Test Item Value Reference Range Interpretation Comments AB HEPATITIS C (test code = NONREACTIVE NONREACTIVE HCVAB) SIGNAL TO CUTOFF (test code = <0.02 <0.80 N CUTOFF) : *CBC W/AUTO [id number] 13:04:00 Test Item Value Reference Range Interpretation [...] REQUIRED (test NORMAL NORMAL code = PLTMR) Urinalysis macro (dipstick) panel - [id number] 10:39:00 Test Item Value Reference Range Interpretation Comments Protein (test code = Protein) Negative Glucose (test code = Glucose) Normal [facility]inal[facility] macro (dipstick) panel - [id number] 10:39:00 Test Item Value Reference Range Interpretation Comments Protein (test code = Protein) Negative Glucose (test code = Glucose) Normal [facility] MedicalUrinalysis macro (dipstick) panel - [id number] 15:19:31 Test Item Value Reference Range Interpretation Comments Protein (test code = Protein) Trace Glucose (test code = Glucose) Negative [facility] MedicalUrinalysis macro (dipstick) panel - [id number] 15:19:31 Test Item Value Reference Range Interpretation Comments Protein (test code = Protein) Trace Glucose (test code = Glucose) Negative [facility] MedicalUrinalysis macro (dipstick) panel - [id number] 15:19:31 Test Item Value Reference Range Interpretation Comments Protein (test code = Protein) Trace Glucose (test code = Glucose) Negative [facility] MedicalStreptococcus agalactiae [Presence] in Unspecified specimen by Organism specific [id number] 00:00:00 Test Item Value Reference Range Interpretation Comments Benzthiazide [Mass/volume] in Urine negative negative (test code = 3400-9) [facility] MedicalStreptococcus agalactiae [Presence] in Unspecified specimen by Organism specific [id number] 00:00:00 Test Item Value Reference Range Interpretation Comments Benzthiazide [Mass/volume] in Urine negative negative (test code = 3400-9) [facility] MedicalUrinalysis macro (dipstick) panel - [id number] 15:30:00 Test Item Value Reference Range Interpretation Comments Protein (test code = Protein) Negative Glucose (test code = Glucose) Negative [facility] MedicalUrinalysis macro (dipstick) panel - [id number] 15:30:00 Test Item Value Reference Range Interpretation Comments Protein (test code = Protein) Negative Glucose (test code = Glucose) Negative [facility] MedicalHIV 1+2 Ab+HIV1 p24 Ag [Presence] in Serum or Plasma by [id number] 00:00:00 Test Item Value Reference Range Interpretation Comments ethnicity: (test code = ethnicity:) race: (test code = race:) other HIV Ag/Ab (test code = HIV non-reactive non-reactive Ag/Ab) [facility] MedicalReagin Ab [Presence] in Serum by [id number] 00:00:00 Test Item Value Reference Range Interpretation Comments ethnicity: (test code = ethnicity:) race: (test code = race:) other RPR (test code = RPR) non-reactive non-reactive [facility] MedicalHIV 1+2 Ab+HIV1 p24 Ag [Presence] in Serum or Plasma by [id number] 00:00:00 Test Item Value Reference Range Interpretation Comments ethnicity: (test code = ethnicity:) race: (test code = race:) other HIV Ag/Ab (test code = HIV non-reactive non-reactive Ag/Ab) [facility] MedicalReagin Ab [Presence] in Serum by [id number] 00:00:00 Test Item Value Reference Range Interpretation Comments ethnicity: (test code = ethnicity:) race: (test code = race:) other RPR (test code = RPR) non-reactive non-reactive [facility]
--- NOTE | 2023-07-27 20:51 | RAD REPORT ---
EXAM DESCRIPTION: RAD - Chest Single View - 07/27/2023 8:44 pm CLINICAL HISTORY: CHEST PAIN Chest pain. COMPARISON: No comparisons FINDINGS: Portable technique limits examination quality. The lungs are grossly clear. The heart is normal in size. No displaced fractures. IMPRESSION: No acute intrathoracic process suspected.
[2023-07-27 20:55] LABS: Absolute Lymphocytes (CBC) 2.4 K/uL (0.7-4.9); Hematocrit 27.3 % (36.0-45.0); Lymphocytes % 31.9 % (15.3-44.8); MCV 68.6 fL (80-100); MPV 7.6 fL (7.6-11.3); Platelets 285 thou/uL (152-406); RBC Red Blood Cell Count 3.98 M/uL (3.86-4.86)
[2023-07-27] MEDS ORDERED: ASPIRIN 81 MG CHEWABLE TABLET ONE (20:55)
[2023-07-27 20:57] LABS: Blood Morphology Comment NOTED (NOT SEEN); Hypochromasia 1+; Platelet Estimate ADEQ; Protime INR 0.94; White Blood Cell Scan OK (OK)
[2023-07-27 21:12] LABS: ALT/SGPT 18 U/L (13-56); AST/SGOT 9 U/L (15-37); Albumin 3.2 g/dL (3.4-5.0); Alkaline Phosphatase 125 U/L (45-117); BUN Blood Urea Nitrogen 19 mg/dL (7-18); Bicarbonate 26 mEq/L (21-32); Bilirubin Direct < 0.1 mg/dL (0-0.2); Bilirubin Indirect, Calculated ND mg/dL (0.2-0.8); Bilirubin Total 0.2 mg/dL (0.2-1.0); Glomerular Filtration Rate 75 ml/min (=/>90); Glucose Level 104 mg/dL (74-106); Magnesium 2.1 mg/dL (1.6-2.4); NT PRO-BNP 45 pg/mL (<125); Potassium 4.1 mEq/L (3.5-5.1); Protein, Total 7.1 g/dL (6.4-8.2); Sodium Level 138 mEq/L (136-145); Troponin High Sensitivity 4.4 pg/mL (<58.9)
[2023-07-27 21:26] LABS: Thyroid Stimulating Hormone 1.39 uIU/mL (0.358-3.740)
--- NOTE | 2023-07-28 00:23 | EDPHYS ---
Physician Documentation [facility] Name: Perri Grayson Age: 38 yrs Sex: Female : 1985 Arrival Date: 07/27/2023 Time: 20:04 Bed 4 Private MD: Marvel Tim ED Physician Bakari Francois HPI: 07/27 20:21 This 38 yrs old Female presents to ER via Unassigned with complaints of Chest sp4 Pain, Arm Pain, Numbness Of Hand. 20:58 38-year-old female presents with acute onset chest pain midsternal dull pressure type sp4 pain starting several hours prior to presentation. Patient was at the urgent care clinic and was sent here to the emergency room for evaluation. Patient states for the past 3 weeks she has had exertional chest pains and dyspnea. Pain also has a stabbing sharp component to it is midsternal. Patient has a history of blood pressure elevation in the past she took lisinopril 5 mg daily. In the past patient has not had Cardiologic work-up.. Historical: - Allergies: 20:24 No Known Allergies; cm10 - PSHx: 20:24 section; gastric sleeve; cm10 - Immunization history:: Adult Immunizations unknown. - Social history:: Smoking status: Patient denies any tobacco usage or history of. - Family history:: not pertinent. ROS: 20:58 Constitutional: Negative for fever, chills, and weight loss, Cardiovascular: Positive sp4 chest pains and shortness of breath negative palpitations 20:58 All other systems are negative, Exam: 20:58 Constitutional: This is a well developed, well nourished patient who is awake, alert, sp4 and in no acute distress. Head/Face: Normocephalic, atraumatic. Eyes: Pupils equal round and reactive to light, extra-ocular motions intact. Lids and lashes normal. Conjunctiva and sclera are not injected. Cornea within normal limits. Periorbital areas with no swelling, redness, or edema. ENT: Nares patent. No nasal discharge, no septal abnormalities noted. Tympanic membranes are normal and external auditory canals are clear. Oropharynx with no redness, swelling, or masses, exudates, or evidence of obstruction, uvula midline. Mucous membranes moist. Neck: Trachea midline, no thyromegaly or masses palpated, and no cervical lymphadenopathy. Supple, full range of motion without nuchal rigidity, or vertebral point tenderness. Chest/axilla: Normal chest wall appearance and motion. Nontender with no deformity. No lesions are appreciated. Cardiovascular: Regular rate and rhythm with a normal S1 and S2. No gallops, murmurs, or rubs. Normal PMI, no JVD. No pulse deficits. Respiratory: Lungs have equal breath sounds bilaterally, clear to auscultation and percussion. No rales, rhonchi or wheezes noted. No increased work of breathing, no retractions or nasal flaring. Abdomen/GI: Soft, non-tender, with normal bowel sounds. No distension or tympany. No guarding or rebound. No evidence of tenderness throughout. Back: No spinal tenderness. No costovertebral tenderness. Skin: Warm, dry with normal turgor. Normal color with no rashes, no lesions, and no evidence of cellulitis. MS/ Extremity: Pulses equal, no cyanosis. Neurovascular intact. Full, normal range of motion. Neuro: Awake and alert, GCS 15, oriented to person, place, time, and situation. Cranial nerves II-XII grossly intact. Motor strength 5/5 in all extremities. Sensory grossly intact. Psych: Awake, alert, with orientation to person, place and time. Behavior, mood, and affect are within normal limits 20:58 ECG was reviewed by the Attending Physician. EKG time 2022 there is normal sinus rhythm at the rate of 84 normal EKG, no ectopy 22:20 Repeat EKG 2157 -normal sinus rhythm with a rate of 65, normal EKG, no ectopy, no ST sp4 elevation or depression, normal intervals, normal axis Vital Signs: 20:22 BP 153 / 76; Pulse 77; Resp 16; Temp 98.3; Pulse Ox 100% ; Weight 94.35 kg; Height 4 cm10 ft. 11 in. ; Pain 5/10; 21:11 BP 140 / 74; Pulse 81; Resp 19 S; Pulse Ox 100% on R/A; ha1 21:30 BP 140 / 74; Pulse 84; Resp 17; Pulse Ox 100% on R/A; rv 22:00 BP 134 / 75; Pulse 76; Resp 18 S; Pulse Ox 100% on R/A; ha1 07/28 00:00 Pulse 66; Resp 16; Temp 98; Pulse Ox 100% on R/A; rv 00:07 BP 127 / 80; rv 07/27 20:22 Body Mass Index 42.01 (94.35 kg, 149.86 cm) cm10 07/27 20:22 Pain Scale: Adult cm10 [place] Coma Score: 07/27 20:36 Eye Response: spontaneous(4). Motor Response: obeys commands(6). Verbal Response: rv oriented(5). Total: 15. MDM: 20:22 Patient medically screened. sp4 23:05 HEART Score: History: Moderately Suspicious (1), ECG: Normal (0), Age: < or = 45 years sp4 (0), Risk Factors: No Risk Factors Known (0), Troponin: < or = 1 x Normal Limit (0), Total Score = 1. Data reviewed: vital signs, nurses notes, old medical records, lab test result(s), cardiac enzymes, CBC, electrolytes, hepatic panel, EKG, radiologic studies, plain films. Consideration of Admission/Observation Escalation of care including admission/observation considered. ED course: Patient today has signs of anemia hemoglobin 8.4 compared to hemoglobin on 04/21/2021 of 11.4. Patient states she has heavy menstrual periods. This is likely the cause all fatigue, exertional dyspnea and chest pain. EKG x2 and troponin x2 is negative. ACS work-up is negative today. Will recommend follow-up with [facility] for management of heavy menstrual flow and consultation for hysterectomy. . 07/28 00:20 Differential diagnosis: acute myocardial infarction, acute pericarditis, anxiety, chest sp4 wall pain, cholecystitis, Cholelithiasis costochondritis. ED course: Repeat troponin is negative. Chest pain likely related to anemia as described above. Patient will be advised to see her [facility] physician for consultation for anemia secondary to heavy menstrual flow. . 07/27 20:21 Order name: Basic Metabolic Panel; Complete Time: 21:50 sp4 07/27 20:21 Order name: CBC with Diff; Complete Time: 21:50 sp4 07/27 20:21 Order name: LFT's; Complete Time: 21:50 sp4 07/27 20:21 Order name: Magnesium; Complete Time: 21:50 sp4 07/27 20:21 Order name: NT PRO-BNP; Complete Time: 21:50 sp4 07/27 20:21 Order name: PT-INR; Complete Time: 21:50 sp4 07/27 20:21 Order name: Troponin HS; Complete Time: 21:50 sp4 07/27 20:39 Order name: TSH; Complete Time: 21:50 sp4 07/27 20:39 Order name: T4 Free; Complete Time: 21:50 sp4 07/27 20:57 Order name: CBC Smear Scan; Complete Time: 21:50 EDMS 07/27 21:52 Order name: Troponin High Sensitivity: Timed at 23:00; Complete Time: 00:12 sp4 07/27 20:21 Order name: XRAY Chest (1 view); Complete Time: 21:50 sp4 07/27 20:21 Order name: EKG; Complete Time: 20:22 sp4 07/27 21:52 Order name: EKG; Complete Time: 21:52 sp4 07/27 20:21 Order name: Cardiac monitoring; Complete Time: 20:28 sp4 07/27 20:21 Order name: EKG - Nurse/Tech; Complete Time: 20:28 sp4 07/27 20:21 Order name: IV Saline Lock; Complete Time: 20:35 sp4 07/27 20:21 Order name: Labs collected and sent; Complete Time: 20:35 sp4 07/27 20:21 Order name: O2 Per Protocol; Complete Time: 20:35 sp4 07/27 20:21 Order name: O2 Sat Monitoring; Complete Time: 20:35 sp4 07/27 21:52 Order name: EKG - Nurse/Tech; Complete Time: 21:52 sp4 EC/25 20:58 Rate is 84 beats/min. Rhythm is regular, Normal Sinus Rhythm. QRS [place] is Normal. [place] sp4 interval is normal. QRS interval is normal. QT interval is normal. No Q waves. T waves are Normal. No ST changes noted. Clinical impression: Normal ECG. Interpreted by me. Reviewed by me. Administered Medications: 20:43 Drug: Aspirin PO Chewable Tablet 324 mg PO once; 81 mg tablets x 4 Route: PO; nj1 21:35 Follow up: Response: No adverse reaction ha1 Disposition Summary: 07/28/23 00:22 Discharge Ordered Problem: new sp4 Symptoms: have improved sp4 Condition: Stable sp4 Diagnosis - Chest pain, unspecified sp4 - Anemia, unspecified sp4 - Microcytic anemia secondary to menstrual blood loss sp4 Followup: sp4 - With: Private Physician - When: 5 - 6 days - Reason: Recheck today's complaints Discharge Instructions: - Discharge Summary Sheet sp4 - Anemia sp4 Forms: - Patient Portal Instructions sp4 Signatures: Dispatcher [employer] Bakari Sullivan MD MD sp4 Carmen Everett RN RN nj1 Mandi Multani RN RN cm10 Asmita David RN ha1
--- NOTE | 2023-07-28 00:23 | ER ---
Nurse's Notes [facility] Name: Perri Grayson Age: 38 yrs Sex: Female : 1985 Arrival Date: 07/27/2023 Time: 20:04 Bed 4 Private MD: Tim Grier Diagnosis: Chest pain, unspecified;Anemia, unspecified;Microcytic anemia secondary to menstrual blood loss Presentation: 07/27 20:22 Chief complaint: Patient states: chest pain to the center of her chest that has been cm10 intermittent for the last few weeks. Pt describes the pain as dull and sharp and states that it radiates down her left arm. Coronavirus screen: Vaccine status: Patient reports receiving the 2nd dose of the covid vaccine. Client denies travel out of the [place] in the last 14 days. Ebola Screen: Patient denies travel to an Ebola-affected area in the 21 days before illness onset. No symptoms or risks identified at this time. Initial Sepsis Screen: Does the patient meet any 2 criteria? No. Patient's initial sepsis screen is negative. Does the patient have a suspected source of infection? No. Patient's initial sepsis screen is negative. Risk Assessment: Do you want to hurt yourself or someone else? Patient reports no desire to harm self or others. Onset of symptoms was July 27, 2023. 20:22 Method Of Arrival: Ambulatory cm10 20:22 Acuity: CECILIO 2 cm10 Historical: - Allergies: 20:24 No Known Allergies; cm10 - PSHx: 20:24 section; gastric sleeve; cm10 - Immunization history:: Adult Immunizations unknown. - Social history:: Smoking status: Patient denies any tobacco usage or history of. - Family history:: not pertinent. Screenin:36 [facility] ED Fall Risk Assessment (Adult) History of falling in the last 3 months, rv including since admission No falls in past 3 months (0 pts) Score/Fall Risk Level 0 - 2 = Low Risk Oriented to surroundings, Maintained a safe environment, Educated pt \T\ family on fall prevention, incl call for assistance when getting out of bed, Assessed \T\ reinforced patient's understanding of fall precautions, Provided non-skid footwear, Hourly rounding (assess needs \T\ fall precautionary measures) done, Used ambulatory aids as needed (educated on \T\ assisted with), Used gait belt as appropriate. Abuse screen: Denies threats or abuse. Denies injuries from another. Nutritional screening: No deficits noted. Tuberculosis screening: No symptoms or risk factors identified. Assessment: 20:36 General: Appears comfortable, Behavior is calm, cooperative. Pain: rv 20:36 Pain: Complains of pain in chest Pain radiates to left arm Pain began weeks Is rv intermittent. Neuro: Level of Consciousness is awake, alert, obeys commands, Oriented to person, place, time, situation. Cardiovascular: Reports chest pain, Capillary refill < 3 seconds Patient's skin is warm and dry. Cardiovascular: Rhythm is sinus rhythm. Respiratory: Airway is patent Respiratory effort is even, unlabored. Respiratory: Breath sounds are clear bilaterally. GI: No signs and/or symptoms were reported involving the gastrointestinal system. : No signs and/or symptoms were reported regarding the genitourinary system. Derm: Skin is intact, Skin is pink, warm \T\ dry. 21:11 Reassessment: Patient and/or family updated on plan of care and expected duration. Pain ha1 level reassessed. Patient is alert, oriented x 3, equal unlabored respirations, skin warm/dry/pink. pain 1/10 Patient states feeling better. Patient states symptoms have improved. 22:00 Reassessment: Patient and/or family updated on plan of care and expected duration. Pain ha1 level reassessed. Patient is alert, oriented x 3, equal unlabored respirations, skin warm/dry/pink. Patient denies pain at this time. 23:00 Reassessment: Patient and/or family updated on plan of care and expected duration. Pain ha1 level reassessed. Patient is alert, oriented x 3, equal unlabored respirations, skin warm/dry/pink. Patient denies pain at this time. Vital Signs: 20:22 BP 153 / 76; Pulse 77; Resp 16; Temp 98.3; Pulse Ox 100% ; Weight 94.35 kg; Height 4 cm10 ft. 11 in. ; Pain 5/10; 21:11 BP 140 / 74; Pulse 81; Resp 19 S; Pulse Ox 100% on R/A; ha1 21:30 BP 140 / 74; Pulse 84; Resp 17; Pulse Ox 100% on R/A; rv 22:00 BP 134 / 75; Pulse 76; Resp 18 S; Pulse Ox 100% on R/A; ha1 07/28 00:00 Pulse 66; Resp 16; Temp 98; Pulse Ox 100% on R/A; rv 00:07 BP 127 / 80; rv 07/27 20:22 Body Mass Index 42.01 (94.35 kg, 149.86 cm) cm10 07/27 20:22 Pain Scale: Adult cm10 [place] Coma Score: 07/27 20:36 Eye Response: spontaneous(4). Motor Response: obeys commands(6). Verbal Response: rv oriented(5). Total: 15. ED Course: 20:08 Patient arrived in ED. mr 20:08 Tim Grier DO is Private Physician. mr 20:21 Bakari Francois MD is Attending Physician. sp4 20:24 Triage completed. 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 20:35 Nicolas Anthony, NORBERTO is Primary Nurse. rv 20:36 Patient has correct armband on for positive identification. Placed in gown. Provided rv Education on: chest pain. Client placed on continuous cardiac and pulse oximetry monitoring. NIBP monitoring applied. lending manager on. 20:36 No provider procedures requiring assistance completed. Patient maintains SpO2 rv saturation greater than 95% on room air. 20:40 Missed attempt(s): 20 gauge in right antecubital area. nj1 20:44 Inserted saline lock: 22 gauge in left antecubital area, using aseptic technique. Blood nj1 collected. 20:46 XRAY Chest (1 view) In Process Unspecified. EDMS 07/28 00:26 IV discontinued, intact, bleeding controlled, No redness/swelling at site. Pressure rv dressing applied. Administered Medications: 07/27 20:43 Drug: Aspirin PO Chewable Tablet 324 mg PO once; 81 mg tablets x 4 Route: PO; nj1 21:35 Follow up: Response: No adverse reaction ha1 Medication: 20:36 VIS not applicable for this client. rv Outcome: 07/28 00:22 Discharge ordered by . sp4 00:26 Discharged to home ambulatory, with family, rv 00:26 Condition: improved 00: Discharge instructions given to patient, Instructed on discharge instructions, follow up and referral plans. Demonstrated understanding of instructions, follow-up care, 00:26 Patient left the ED. rv Signatures: Dispatcher [employer] [facility] [place] Sandra, Reg Reg mr RajNicolas, RN RN rv Asmita David, RN RN ha1 Bakari Francois MD MD sp4 Carmen Everett RN RN nj1 Mandi Multani RN RN cm10 Corrections: (The following items were deleted from the chart) 07/27 20:37 20:36 General: Appears comfortable, Behavior is calm, cooperative, rv rv
--- NOTE | 2023-07-28 07:57 | EKG ---
Test Date: 2023-07-27 Test Time: 21:58:12 Global Position System Technician: CRISTIANA MEASUREMENT RESULTS: Intervals: Rate: 65 CO: 140 QRSD: 76 QT: 420 QTc: 436 [place]: P: 41 CO: 140 QRS: 24 T: 49 INTERPRETIVE STATEMENTS: Normal sinus rhythm Normal ECG Compared to ECG 07/27/2023 20:23:14 No significant changes Electronically Signed On 07-28-23 07:56:47 CDT by Elkin Gomes
--- NOTE | 2023-07-28 07:57 | EKG ---
Test Date: 2023-07-27 Test Time: 20:23:14 Control Integration Engineer: CRISTIANA MEASUREMENT RESULTS: Intervals: Rate: 84 SC: 136 QRSD: 76 QT: 380 QTc: 449 [place]: P: 49 SC: 136 QRS: 22 T: 56 INTERPRETIVE STATEMENTS: Normal sinus rhythm Normal ECG No previous ECG available for comparison Electronically Signed On 07-28-23 07:56:49 CDT by Elkin Gomes
[2023-07-28 16:15] VITALS: BP 127/80; TEMP 98; O2SAT 100
== END 2023-07-28 00:26 | disposition home or self-care (01) ==
LOC: ER 20:04
DX: R07.9 Chest pain, unspecified (principal); D50.0 Iron deficiency anemia secondary to blood loss (chronic)
CPT/HCPCS: 36415; 71045; 80048; 80076; 83735; 83880; 84439; 84443; 84484; 85025; 85610; 93005; 99285